=== PATIENT | female | born 2000 | race Hispanic/Latino ===

== ENCOUNTER 2018-10-11 08:25 | Inpatient (IN) | payer MEDICAID, OTHER ==
[2018-10-11 09:09] VITALS: BMI 33.0
[2018-10-11 09:37] LABS: Amnisure Test RUPTURE DETECTED (No Rupture)
[2018-10-11 09:38] LABS: Amnisure Internal Control QC ACCEPTABLE (ACCEPTABLE)
[2018-10-11] MEDS ORDERED: Promethazine HCl 25 MG/ML VIAL IM PRN ×2 (09:47→18:06)
[2018-10-11] MEDS ORDERED: hydrALAZINE 20 MG/ML VIAL SLOW IVP PRN (09:47)
[2018-10-11] MEDS ORDERED: Lidocaine 1% (PF) 30 ML VIAL SC PRN (09:47)
[2018-10-11] MEDS ORDERED: Zolpidem Tartrate 5 MG TAB PO PRN (09:47)
[2018-10-11] MEDS ORDERED: Acetaminophen/Codeine 30-300mg Tablet PO PRN ×2 (09:47)
[2018-10-11] MEDS ORDERED: Ibuprofen 800 MG TAB PO PRN (09:47)
[2018-10-11] MEDS ORDERED: Butorphanol Tartrate 1 MG/ML VIAL SLOW IVP PRN (09:47)
[2018-10-11] MEDS ORDERED: NS / Oxytocin 40 units/1000ml 1,000 ML IV PRN (09:47)
[2018-10-11] MEDS ORDERED: Ondansetron PF 4 MG/2 ML Vial IVP PRN ×2 (09:47→18:06)
[2018-10-11] MEDS ORDERED: Acetaminophen 500 MG TAB PO PRN (09:47)
--- NOTE | 2018-10-11 09:51 | PDOC.LDHP ---
Labor and Delivery H&P Chief complaint: loss of fluid HPI: 18 yo LAF c/o LOF since 644. Also with occ. UCs. Current gestational age (weeks): 39 Due date: 10/16/18 Dating criteria: last menstrual period Grav: 1 Para: 0 OB History Details: PNC with Dr. Desouza. H/o Arnold Chiari malformation surgery, dispo is for . Current complications: none Abnormal US findings: No Past Medical History: Arnold Chiari Malformation Current medications: pre-elham vitamins Previous surgical history: cholecystectomy, other (back, brain) Allergies/Adverse Reactions: Allergies Allergy/AdvReac Type Severity Reaction Status Date / Time No Known Allergies Allergy Verified 10/11/18 08:59 Social history: none - Physical Exam Vital signs reviewed and normal: yes General: NAD Heart: RRR Lungs: nonlabored breathing Abdomen: gravid Extremeties: trace edema FHT: category 1 [place] contractions every: q 3-5 mins - Vaginal Exam cm dilated: 1 Effacement: 50% - OB Labs GBS: negative - Assessment L&D Assessment: term patient in labor - Plan Plan: admit to L&D (Dr. Desouza notified), labor augmentation if indicated, informed consent obtained, anesthesia consult for pain management
[2018-10-11] MEDS ORDERED: Lactated Ringer's 1,000 ML IV SCH (10:00)
[2018-10-11] MEDS ORDERED: NS w/ Oxytocin 10 units 500 ML IV SCH (10:00)
[2018-10-11 10:27] LABS: Hemoglobin 13.3 g/dL (12.0-16.0); Mean Corpuscular HGB CONC 33.5 g/dL (32.0-36.0); Mean Corpuscular Hemoglobin 30.1 pg (25.0-35.0); Mean Corpuscular Volume 89.8 fL (78.0-98.0); Mean Platelet Volume 9.9 fL (7.4-10.4); Platelet Count 176 thou/uL (130-400); RBC Distribution Width 11.8 % (11.5-14.5); Red Blood Cell (RBC) Count 4.41 mill/uL (4.00-5.20); White Blood Cell (WBC) Count 11.4 thou/uL (4.8-10.8)
[2018-10-11] MEDS: Lactated Ringer's 1,000 ML IV SCH ×2 (11:00→18:01)
[2018-10-11 11:17] LABS: Syphilis Antibody Nonreactive (Nonreactive); Syphilis Antibody Index 0.05 S/CO (<1.00 Non-Reactive)
[2018-10-11 11:18] LABS: HBSAg Index 0.17 S/CO (0-0.99); Hep B Surf Ag Non-Reactive S/CO (NonReactive)
[2018-10-11] MEDS ORDERED: Misoprostol 100 MCG TAB PO PRN (12:10)
[2018-10-11] MEDS: Meperidine HCl/PF 25 MG/ML VIAL IM/IV PRN ×2 (14:05→17:09)
[2018-10-11] MEDS ORDERED: Lidocaine 1.5%/Epinephrine 1:200,000 5 ML AMPUL IJ ONE (17:00)
[2018-10-11] MEDS ORDERED: Fentanyl 4 mcg/Bup 0.1% Cadd 100 ML ONE (17:00)
[2018-10-11] MEDS ORDERED: Bupivacaine 0.25% HCL 30 ML VIAL ONE (17:31)
[2018-10-11] MEDS ORDERED: Bupivacaine/Epinephrine 0.25% 30 ML VIAL ONE (17:31)
[2018-10-11] MEDS ORDERED: Acetaminophen 325 MG TAB PO PRN (18:06)
[2018-10-11] MEDS ORDERED: Lactated Ringer's 500 ML IV PRN (18:06)
[2018-10-11] MEDS ORDERED: Naloxone HCl 0.4 mg/ml Vial IVP PRN ×2 (18:06)
[2018-10-11] MEDS ORDERED: ePHEDrine/0.9% NaCl/PF SYRINGE 50 mg/10 ml SLOW IVP PRN (18:06)
[2018-10-11] MEDS ORDERED: diphenhydrAMINE 50 MG/ML VIAL IVP PRN (18:06)
[2018-10-11] MEDS ORDERED: Communication Order-Pharmacy FS SCH (18:15)
[2018-10-11] MEDS ORDERED: Fentanyl 4 mcg/Bupivacaine 0.1% Cassette 100 ML EPIDURAL SCH (18:15)
[2018-10-12] MEDS ORDERED: NS / Oxytocin 40 units/1000ml 1,000 ML IV SCH (04:16)
[2018-10-12] MEDS ORDERED: diphenhydrAMINE 25 MG CAP PO PRN (04:16)
[2018-10-12] MEDS ORDERED: Lanolin Ointment 7 GM TUBE TOP PRN (04:16)
[2018-10-12] MEDS ORDERED: Zolpidem Tartrate 5 MG TAB PO PRN (04:16)
[2018-10-12] MEDS ORDERED: Preparation H Ointment 28 GM TUBE PR PRN (04:16)
[2018-10-12] MEDS ORDERED: HYDROcodone/Acetaminophen 5/325 mg Tablet PO PRN ×2 (04:16)
[2018-10-12] MEDS ORDERED: Promethazine HCl 25 MG/ML VIAL IM PRN (04:16)
[2018-10-12] MEDS ORDERED: Benzocaine-Menthol 82.5 ML CAN TOP PRN (04:16)
[2018-10-12] MEDS ORDERED: hydrALAZINE 20 MG/ML VIAL SLOW IVP PRN (04:16)
[2018-10-12] MEDS ORDERED: Bisacodyl 10 MG SUPP PR PRN (04:16)
[2018-10-12] MEDS ORDERED: Misoprostol 200 MCG TAB VAG PRN (04:16)
[2018-10-12] MEDS ORDERED: Ondansetron PF 4 MG/2 ML Vial IVP PRN (04:16)
[2018-10-12] MEDS ORDERED: Milk Of Magnesia 30 ML UDCUP PO PRN (04:16)
[2018-10-12] MEDS ORDERED: Methylergonovine 0.2 MG/ML VIAL IM PRN (04:16)
[2018-10-12] MEDS: Lactated Ringer's 1,000 ML IV SCH (04:47)
[2018-10-12] MEDS: Ibuprofen 800 MG TAB PO SCH ×3 (05:36→21:40)
[2018-10-12] MEDS ORDERED: Measles/Mumps/Rubella 10 MCG/0.5 ML VIAL SC ONE (09:00)
[2018-10-12] MEDS ORDERED: Varicella virus, LIVE 0.5 ML VIAL SC ONE (09:00)
[2018-10-12] MEDS ORDERED: Adacel (T-DAP) 0.5 ML SYRINGE IM ONE (09:00)
[2018-10-12] MEDS: Docusate Calcium (SURFAK) 240 MG CAP PO SCH ×2 (09:30→21:37)
[2018-10-12] MEDS: Ferrous Sulfate 325 MG TAB PO SCH ×2 (09:30→17:18)
[2018-10-12] MEDS: Prenatal Vitamin 1 TAB PO SCH (09:30)
--- NOTE | 2018-10-13 04:12 | PDOC.PP ---
Post Progress Note Post Day #: 1 PO intake tolerated: yes Flatus: yes Ambulation: yes Vital Signs (12 hours) Temp Pulse Resp BP Pulse Ox 10/13/18 00:35 98.0 F 58 L 16 106/51 L 10/12/18 20:00 98.6 F 84 18 94/52 L 98 10/12/18 16:59 98.1 F 59 L 14 107/58 L 99 Weight Weight 181 lb - Physical Examination General: NAD Cardiovascular: no m/r/g, RRR Respiratory: clear to auscultation bilaterally, non-labored breathing Abdominal: + bowel sounds, lochia, no distention Extremities: negative homans (B) Neurological: no gross focal deficits Psychiatric: A&Ox3, normal affect Result Diagrams: 10/11/18 10:20 Additional Labs: Post Labs Blood Type O POSITIVE 10/11/18 10:51 Hep Bs Antigen Non-Reactive S/CO (NonReactive) 10/11/18 10:20
--- NOTE | 2018-10-13 04:25 | DN ---
DATE OF PROCEDURE: 10/12/2018 TIME OF SERVICE: At 01:33 [place] Daylight Savings Time. PREOPERATIVE DIAGNOSIS: Intrauterine at 39 weeks and 3 days with spontaneous onset of labor and spontaneous rupture of membranes. POSTOPERATIVE DIAGNOSIS: Intrauterine at 39 weeks and 3 days with spontaneous onset of labor and spontaneous rupture of membranes. PROCEDURE PERFORMED: Spontaneous vaginal delivery over intact perineum with small left periurethral laceration. FINDINGS: Viable male weighing 3177 g or 7 pounds 0 ounces. Apgars of 7 and 9. COMPLICATIONS: None. PROCEDURE IN DETAIL: The patient presented to [facility] where she was admitted to the labor and delivery service. The patient underwent a normal and uneventful labor with normal cervical dilatation until she was found to be completely dilated. She was then allowed to push and was able to bring the baby down and delivered the baby in a vertex presentation without difficulties. Once the head delivered in occiput anterior position, the shoulders followed spontaneously along with the rest of the baby's body. Once out the baby's mouth and nose were bulb suctioned. The cord was clamped and cut and baby was handed to waiting attendants. Cord blood was collected. Gentle fundal massage was performed and the placenta delivered intact without problems. Hemostasis was assured. Quantitative blood loss was calculated. Inspection of the cervix, vaginal vault, and perineum did not reveal any lacerations needing suturing. Once again, hemostasis was within normal limits and the patient was allowed to recover in the labor and delivery room. Baby went to nursery. Job ID: [id number]
[2018-10-13] MEDS: Ibuprofen 800 MG TAB PO SCH ×3 (05:08→21:11)
[2018-10-13 06:28] LABS: Hemoglobin 10.7 g/dL (12.0-16.0); Mean Corpuscular HGB CONC 33.2 g/dL (32.0-36.0); Mean Corpuscular Hemoglobin 30.9 pg (25.0-35.0); Mean Platelet Volume 9.3 fL (7.4-10.4); Platelet Count 147 thou/uL (130-400); Red Blood Cell (RBC) Count 3.45 mill/uL (4.00-5.20); White Blood Cell (WBC) Count 14.2 thou/uL (4.8-10.8)
[2018-10-13] MEDS: Prenatal Vitamin 1 TAB PO SCH (09:58)
[2018-10-13] MEDS: Ferrous Sulfate 325 MG TAB PO SCH ×2 (09:58→16:10)
[2018-10-13] MEDS: Docusate Calcium (SURFAK) 240 MG CAP PO SCH ×2 (09:58→21:11)
[2018-10-14] MEDS: Ibuprofen 800 MG TAB PO SCH ×2 (05:18→14:09)
[2018-10-14] MEDS: Prenatal Vitamin 1 TAB PO SCH (09:23)
[2018-10-14] MEDS: Docusate Calcium (SURFAK) 240 MG CAP PO SCH (09:23)
[2018-10-14] MEDS: Ferrous Sulfate 325 MG TAB PO SCH (09:24)
[2018-10-14 10:17] VITALS: BP 113/69; TEMP 98
== END 2018-10-14 15:40 | disposition home or self-care (01) | DRG 807 ==
LOC: L&D/OP 08:25 → L&D 11:03 → 3SW 10-12 04:10
PROVIDERS: ADMIT Obstetrics & Gynecology; ATTEND Obstetrics & Gynecology
PROC: 10E0XZZ Delivery of Products of Conception, External Approach (ICD-10-PCS; principal; 2018-10-13)
DX: O69.81X0 Labor and delivery complicated by cord around neck, without compression, not applicable or unspecified (principal); Z37.0 Single live birth; O71.82 Other specified trauma to perineum and vulva; Z3A.39 39 weeks gestation of pregnancy; Z90.49 Acquired absence of other specified parts of digestive tract
CPT/HCPCS: 36415; 51702; 84112; 85027; 86780; 86850; 86900; 86901; 87340; 90715; 99285; J2175; J2590; J3490; S0020